=== PATIENT | female | born 2000 | race Hispanic/Latino ===

== ENCOUNTER → 2024-12-24 | Day surgery (SDC) | payer BC ==
[2024-12-19 13:25] LABS: BASOPHILS % 0.6 % (0.0-1.0); EOSINOPHILS % 2.7 % (0.0-6.0); LYMPHOCYTES % 32.2 % (18.0-39.1); MONOCYTES % 7.9 % (4.4-11.3); NEUTROPHILS % 56.6 % (38.7-80.0); RED CELL DISTRIBUTION WIDTH 13.4 % (11.7-14.4)
[2024-12-19 13:39] LABS: EST GLOMERULAR FILTRATION RATE 123.0 ML/MIN (>=60)
[~2024-12-24] MED LIST: ACETAMINOPHEN 1000 MG/100 ML 100 ML IV ONE; DEXAMETHASONE SOD PHOS INJ 4 MG/ML SDV ONE; FENTANYL CITRATE/PF 100MCG/2 ML INJ ONE; HYDROMORPHONE 2MG/ML ONE; KETOROLAC TROMETHAMINE 30 MG/ML VIAL ONE; LIDOCAINE HCL 2% LOCAL INJ 5 ML SDV VIAL INJ ONE; ONDANSETRON HCL INJ 2MG/ML 2ML 2 MG/ML VIAL ONE; PROPOFOL IV EMULSION 10 MG/ML 20 ML VIAL ONE; SEVOFLURANE INHAL SOLN 250 ML PEN BTL ONE
[2024-12-24] MEDS: LACTATED RINGER'S 1,000 ML ONE (07:05)
[2024-12-24] MEDS: CEFAZOLIN SODIUM 2 GM ONE (07:05)
[2024-12-24] MEDS: HYDROCODONE/APAP 5MG-325MG TAB ONE (10:00)
[2024-12-24] MEDS: FENTANYL CITRATE/PF 100MCG/2 ML INJ ONE (10:05)
[2024-12-24 11:00] VITALS: BP 112/70; PULSE 64; RESP 18; O2SAT 99
== END | disposition home or self-care (01) ==
LOC: OR 05:55
PROVIDERS: ATTEND Podiatrist Foot Surgery
DX: S93.322A Subluxation of tarsometatarsal joint of left foot, initial encounter (principal); M21.172 Varus deformity, not elsewhere classified, left ankle; M20.5X2 Other deformities of toe(s) (acquired), left foot; M20.12 Hallux valgus (acquired), left foot; M20.42 Other hammer toe(s) (acquired), left foot; Z72.0 Tobacco use; Z01.810 Encounter for preprocedural cardiovascular examination; Z01.812 Encounter for preprocedural laboratory examination; Z01.818 Encounter for other preprocedural examination
CPT/HCPCS: 28285 ×4; 28297; 36415; 71046; 73620; 80048; 81025; 84702; 85025; 93005; J0131; J1100; J1171; J1885; J2003; J2405; J2704; J3010; J7121